=== PATIENT | male | born 1990 | race Caucasian/White ===

== ENCOUNTER 2018-01-31 21:44 | Emergency (ER) | payer MEDICAID ==
[~2018-01-31] VITALS: Ht 180.3 cm; Wt 113.6 kg
[2018-01-31 22:29] LABS: BASOPHILS % (AUTO) 0.1 % (0-1); EOSINOPHILS # (AUTO) 0.2 X10'3 (0-0.9); EOSINOPHILS % (AUTO) 1.5 % (0-6); HEMATOCRIT 44.2 % (42.0-52.0); HEMOGLOBIN 15.1 g/dl (14.0-17.9); LYMPHOCYTES # (AUTO) 0.6 X10'3 (1.1-4.8); LYMPHOCYTES % (AUTO) 3.4 % (21-51); MEAN CORPUSCULAR HEMOGLOBIN 30.1 PG (27.0-31.0); MEAN CORPUSCULAR HGB CONC 34.1 % (33.0-36.5); MEAN CORPUSCULAR VOLUME 88.3 FL (78-98); MEAN PLATELET VOLUME 7.6 FL (7.4-10.4); MONOCYTES # (AUTO) 0.1 X10'3 (0-0.9); MONOCYTES % (AUTO) 0.9 % (2-12); NEUTROPHILS # (AUTO) 15.2 X10'3 (1.8-7.7); NEUTROPHILS % (AUTO) 94.1 % (42-75); PLATELET COUNT 378 X10'3 (140-440); RED BLOOD COUNT 5.01 X10'6 (4.70-6.10); WHITE BLOOD COUNT 16.2 X10'3 (4.5-11.0)
[2018-01-31 22:36] LABS: CLARITY,URINE CLEAR (Clear); COLOR,URINE YELLOW (Yellow); GLUCOSE, URINE NEGATIVE (Neg); KETONES,URINE TRACE mg/dl (Neg); LEUKOCYTE ESTERASE ,URINE NEGATIVE (Neg); NITRITES, URINE NEGATIVE (Neg); OCCULT BLOOD,URINE NEGATIVE (Neg); PH,URINE 6.5 (4.8-8.0); PROTEIN,URINE NEGATIVE (Neg); UROBILINOGEN,URINE 0.2 E.U/dL (0.2-1.0)
[2018-01-31 22:37] LABS: UA COLLECTION TYPE CLN CATCH MIDSTREAM
[2018-01-31 22:41] VITALS: BP 123/57
[2018-01-31 22:43] LABS: ALANINE AMINOTRANSFERASE 36 U/L (12-78); ALBUMIN 3.8 G/DL (3.4-5.0); ALKALINE PHOSPHATASE 85 IU/L (46-116); ANION GAP 12 (8-16); ASPARTATE AMINO TRANSFERASE 14 U/L (10-37); BILIRUBIN,TOTAL 0.5 MG/DL (0.1-1.0); BLOOD UREA NITROGEN 14 MG/DL (7-18); BUN/CREATININE RATIO 17.3 (5.4-32.0); CALCIUM 8.6 MG/DL (8.5-10.1); CHLORIDE 103 MMOL/L (99-107); CREATININE 0.81 MG/DL (0.60-1.10); GLUCOSE 102 MG/DL (70-104); POTASSIUM 3.7 MMOL/L (3.5-5.1); SODIUM 138 MMOL/L (135-145); TOTAL CARBON DIOXIDE 23.1 MMOL/L (24-32); TOTAL PROTEIN 7.7 G/DL (6.4-8.2); eGFR > 90 ML/MIN
[2018-01-31 22:47] LABS: PLATELET ESTIMATE NORMAL
[2018-01-31 22:53] LABS: TOTAL CELLS COUNTED 100
[2018-01-31] MEDS ORDERED: ondansetron/PF 4mg/2ml inj IV ONE (23:15)
[2018-01-31] MEDS ORDERED: morphine 4 MG/ML inj SYRINge IV ONE (23:15)
[2018-01-31] MEDS ORDERED: ONDA4TAB9 PO (23:16)
== END 2018-02-01 00:17 | disposition home or self-care (01) ==
LOC: ER 21:45
DX: R19.7 Diarrhea, unspecified (principal); R11.2 Nausea with vomiting, unspecified; F17.200 Nicotine dependence, unspecified, uncomplicated; Z79.899 Other long term (current) drug therapy
CPT/HCPCS: 36415; 80053; 81003; 85025; 96374; 96375; 99284; J2270; J2405

== ENCOUNTER 2018-05-29 18:34 | Emergency (ER) | payer MEDICAID ==
[~2018-05-29] VITALS: Ht 180.3 cm; Wt 87.0 kg
[2018-05-29 19:09] VITALS: BP 140/78
[2018-05-29] MEDS ORDERED: HYDR-4353 PO (20:59)
[2018-05-29] MEDS ORDERED: tetanus & diphtheria toxoid (Td) vaccine 0.5ml IMVAC ONE (21:20)
[2018-05-29] MEDS ORDERED: TETanus/Pertussis (Acell)/Diphther VAC/PF (Tdap-Adult) 0.5ml syringe IMVAC ONE (21:25)
== END 2018-05-29 21:41 | disposition home or self-care (01) ==
LOC: ER 18:35
DX: S61.200A Unspecified open wound of right index finger without damage to nail, initial encounter (principal); F17.200 Nicotine dependence, unspecified, uncomplicated; F12.10 Cannabis abuse, uncomplicated; W25.XXXA Contact with sharp glass, initial encounter; Y93.89 Activity, other specified; Y92.89 Other specified places as the place of occurrence of the external cause; Y99.8 Other external cause status; Z91.018 Allergy to other foods
CPT/HCPCS: 90471; 90715; 99283

== ENCOUNTER 2024-08-15 17:20 | Emergency (ER) | payer SELFPAY ==
[~2024-08-15] VITALS: Ht 180.3 cm; Wt 93.7 kg
[2024-08-15 18:26] LABS: BASOPHILS # (AUTO) 0.1 X10'3 (0-0.2); EOSINOPHILS # (AUTO) 0.2 X10'3 (0-0.9); EOSINOPHILS % (AUTO) 2.6 % (0-6); HEMATOCRIT 41.6 % (42.0-52.0); HEMOGLOBIN 14.2 g/dl (14.0-17.9); LYMPHOCYTES # (AUTO) 3.5 X10'3 (1.1-4.8); LYMPHOCYTES % (AUTO) 43.2 % (21-51); MEAN CORPUSCULAR HEMOGLOBIN 29.7 PG (27.0-31.0); MEAN CORPUSCULAR HGB CONC 34.1 g/dL (33.0-36.5); MEAN CORPUSCULAR VOLUME 87.2 FL (78-98); MEAN PLATELET VOLUME 7.3 FL (7.4-10.4); MONOCYTES # (AUTO) 0.9 X10'3 (0-0.9); MONOCYTES % (AUTO) 11.2 % (2-12); NEUTROPHILS # (AUTO) 3.4 X10'3 (1.8-7.7); PLATELET COUNT 370 X10'3 (140-440); RED BLOOD COUNT 4.77 X10'6 (4.70-6.10); RED CELL DISTRIBUTION WIDTH 13.6 % (11.5-14.5); WHITE BLOOD COUNT 8.1 X10'3 (4.5-11.0)
[2024-08-15 18:39] LABS: ALANINE AMINOTRANSFERASE 37 U/L (12-78); ALBUMIN 3.3 G/DL (3.4-5.0); ALBUMIN/GLOBULIN RATIO 1.1 (1.1-1.5); ALKALINE PHOSPHATASE 113 IU/L (46-116); ANION GAP 5 (8-16); ASPARTATE AMINO TRANSFERASE 15 U/L (10-37); BLOOD UREA NITROGEN 14 MG/DL (7-18); BUN/CREATININE RATIO 16.9 (10.0-20.0); CALCIUM 8.8 MG/DL (8.5-10.1); CHLORIDE 106 MMOL/L (99-107); CREATININE 0.83 MG/DL (0.60-1.10); GLUCOSE 85 MG/DL (70-104); POTASSIUM 4.1 MMOL/L (3.5-5.1); SODIUM 141 MMOL/L (135-145); TOTAL CARBON DIOXIDE 30.3 MMOL/L (24-32); TOTAL PROTEIN 6.4 G/DL (6.4-8.2); eCRCL 136 ML/MIN; eGFR > 90 ML/MIN
[2024-08-15 18:40] VITALS: BP 130/83; PULSE 94; RESP 16; O2SAT 98
[2024-08-15 18:44] LABS: BILIRUBIN,TOTAL 0.1 MG/DL (0.1-1.0)
--- NOTE | 2024-08-15 18:50 | Physician Documentation ---
History of Present Illness General Chief Complaint: See Chief Complaint Stated Complaint: LOWER BACK PAIN/WITHDRAWAL FROM WIPPETS Time Seen by MD: 17:57 Primary Medical Doctor: NONE History of Present Illness Initial Comments 33-year-old male reports to the emergency department for evaluation. Reports that he has been doing whipits for a long time for many months yet discontinued week and a half ago and wondered if he has not any long-term effects from them. States while doing whipits he was also taking a vitamin B12 supplement. He has a strong nonantalgic gait he is grossly neurologically intact. He has no obvio us neuro focal deficits. Medication Reconciliation Allergies: Coded Allergies: honey (Verified Allergy, Unknown, rash, 05/29/18) Past Medical History Past Medical History: No Pertinent History Past Surgical History: no surgical history Alcohol Use: Occasionally Drug Use: marijuana Lives with: Alone Lives In: Home Review of Systems Neuro: Reports: numbness; Denies: headache, seizures, dizziness, weakness Physical Exam Physical Exam Vital Signs: RN Vital Signs have been reviewed: Yes, Temperature: 97.6, Source: Oral, Heart Rate: 94, Respiratory Rate: 16, BP: 130/83, Pulse Oximetry: 98, Weight: 93.700 Oxygen Flow Rate: 0 General Appearance: alert, WD/WN, no apparent distress Head: normal inspection Face: normal inspection Pupils/EOM/Fundus: PERRLA Oropharynx: normal inspection Neck: full range of motion Respiratory: no respiratory distress Chest: no accessory muscle use Cardiovascular: normal peripheral pulses, regular rate, rhythm Gastrointestinal: normal palpation Back: normal inspection Extremities: normal range of motion Neurologic: oriented x4, distribution agent II-XII nml as tested, memory intact, oriented to time, oriented to person, oriented to place, oriented to events Motor / Sensory: no motor deficit, no sensory deficit, no pronator drift, negative Babinski's sign, positive Babinski's sign; No: weak motor strength RUE, weak motor strength LUE, weak motor strength RLE, weak motor strength LLE Psychiatric: normal mood/affect, anxiety Skin: normal color, warm/dry; No: rash Progress Results/Orders Results/Orders Orders - MATILDA WARD PAC CMP (08/15/24 17:57) Vitamin B12 (08/15/24 17:57) Completed Orders - MATILDA WARD PAC Cbc/Diff (08/15/24 17:57) Vital Signs 08/15/24 08/15/24 08/15/24 17:29 17:41 18:40 Temp 97.6 97.6 Pulse 18 105 94 Resp 18 18 16 B/P (MAP) 137/87 138/92 (107) 130/83 (99) Pulse Ox 98 99 98 O2 Flow Rate 0 0 Laboratory Tests Test 08/15/24 18:15 White Blood Count 8.1 Red Blood Count 4.77 Hemoglobin 14.2 Hematocrit 41.6 L Mean Corpuscular Volume 87.2 Mean Corpuscular Hemoglobin 29.7 Mean Corpuscular Hemoglobin Concent 34.1 Red Cell Distribution Width 13.6 Platelet Count 370 Mean Platelet Volume 7.3 L Neutrophils (%) (Auto) 42.0 Lymphocytes (%) (Auto) 43.2 Monocytes (%) (Auto) 11.2 Eosinophils (%) (Auto) 2.6 Basophils (%) (Auto) 1.0 Neutrophils # (Auto) 3.4 Lymphocytes # (Auto) 3.5 Monocytes # (Auto) 0.9 Eosinophils # (Auto) 0.2 Basophils # (Auto) 0.1 CBC Comment Sodium Level 141 Potassium Level 4.1 Chloride Level 106 Carbon Dioxide Level 30.3 Anion Gap 5 L Blood Urea Nitrogen 14 Creatinine 0.83 Estimated GFR/1.73 m2 > 90 BUN/Creatinine Ratio 16.9 Glucose Level 85 Calcium Level 8.8 Total Bilirubin 0.1 Aspartate Amino Transf (AST/SGOT) 15 Alanine Aminotransferase (ALT/SGPT) 37 Alkaline Phosphatase 113 Total Protein 6.4 Albumin 3.3 L Globulin 3.1 Albumin/Globulin Ratio 1.1 Chemistry Comments Medical Decision Making Differential Diagnosis 33-year-old male who discontinued represent habitual with the use a week and a half ago. Grossly neurologically intact at this time without clinical suspicion of subacute combined degeneration. No MRI indicated. Screening labs reassuring and vitamin B12 screening lab pending. Patient to be recommended vitamin B12 supplement follow up with [facility]. Departure Disposition: HOME / SELF CARE / HOMELESS Impression: Primary Impression: Nitrous oxide user Condition: Stable Additional Instructions: Please begin vitamin B12 supplementation of follow up with [facility]. Return to the emergency department for any neurological deficits. Referrals: NO PRIMARY CARE PROVIDER (PCP) Prescriptions Vit B12/Fa/Pyridoxine Hcl/Aa15 (Glycotrol Capsule) 500 Mcg-400 Mcg-10 Mg-400 Mg Capsule 1 CAP PO DAILY for 30 Days, #30 CAP 0 Refills Prov: MATILDA WARD PAC 08/15/24 Education Educated: Patient Educated regarding: diagnosis Signature Scribe Signature: . Attestation: . MATILDA WARD PAC August 15, 2024 18:50
[2024-08-15] MEDS ORDERED: VIT1CAPS14 PO (18:51)
[2024-08-15] MEDS: cyanocobalamin 500mcg tablet PO STA (19:03)
[2024-08-15 19:08] VITALS: TEMP 97.6
== END 2024-08-15 19:10 | disposition home or self-care (01) ==
LOC: ER 17:22
DX: F18.90 Inhalant use, unspecified, uncomplicated (principal)
CPT/HCPCS: 36415; 80053; 82607; 85025; 99283